=== PATIENT | female | born 1995 | race Caucasian/White ===

== ENCOUNTER 2016-10-03 20:07 | Emergency (ER) | payer OTHER ==
[~2016-10-03] VITALS: Ht 157.5 cm; Wt 64.7 kg
[2016-10-03 20:23] VITALS: TEMP 37.2; Ht 157.5 cm; Wt 64.7 kg
[2016-10-03] MEDS ORDERED: LORA-741 PO (20:46)
[2016-10-03] MEDS ORDERED: PARO10TA PO (20:46)
[2016-10-03] MEDS ORDERED: BCPILLS PO (20:46)
[2016-10-03] MEDS ORDERED: BUPR-79 PO (20:46)
[2016-10-03] MEDS ORDERED: TRAZ50TA35 PO (20:46)
[2016-10-03] MEDS ORDERED: ERYTHROMYCIN OP OINT 1 GM PKT OP STA (20:54)
--- NOTE | 2016-10-03 20:56 | EMERGENCY ROOM VISIT NOTE ---
History First contact with patient: 20:26 Chief Complaint: EYE ASSESSMENT Stated Complaint: SWOLLEN EYE WITH PUSS COMING OUT History of Present Illness The patient is a 20 year old female who presents to the Emergency Room via private vehicle with complaints of "swollen eye with pus coming out". The patient is accompanied by her boyfriend. The boyfriend notes that he had similar symptoms 1 week prior in bilateral eyes. The patient presents with redness of the right eye, and notes that she woke up and there was pus coming out of it. She denies any trauma to the eye, history of contacts or glasses. She notes that there has been associated intermittent blurriness in the right eye since she has woken up today. She denies any pain behind the eye with movement. She notes minimal pain on the upper eyelid when she moves her eye. She denies any fevers, chills, chest pain or shortness of breath. She denies any history of glaucoma. Review of Systems A complete 6-point Review of Systems was discussed with the patient, with pertinent positives and negatives listed in the History of Present Illness. All remaining Review of Systems questions can be considered negative unless otherwise specified. Past Medical/Surgical History Stomach problems Family History Heart disease, high blood pressure Social History Smoking Status: Never Smoker Social History: Patient lives at home with parents, denies alcohol and tobacco use. Current/Historical Medications Scheduled Control Pills ( Control Pills), 1 TAB PO NOON Bupropion (Wellbutrin Sr), 150 MG PO NOON Paroxetine Hcl (Paxil), 10 MG PO NOON Trazodone Hcl (Trazodone), 50 MG PO HS Scheduled PRN Lorazepam (Ativan), 0.5 MG PO BID PRN for Anxiety/Agitation Allergies Coded Allergies: No Known Allergies (Unverified , 10/03/16) Physical Exam Vital Signs Date Time Temp Pulse Resp B/P Pulse Ox O2 Delivery O2 Flow Rate FiO2 10/03/16 21:04 74 16 106/70 99 10/03/16 20:23 37.2 95 18 111/70 97 Room Air Right Eye Acuity: 20/25 Left Eye Acuity: 20/15 Physical Exam VITAL SIGNS - Vital signs and nursing notes were reviewed. GENERAL -20-year-old female appearing her stated age. Communicates well with provider and answers questions appropriately. HEAD - Normocephalic, Atraumatic. No Medina's Sign or Raccoon's Eyes. No depressed skull fractures palpable. EYES - PERRL with EOMI bilaterally. Sclera without noticeable foreign body or excoriations. Minimal conjunctival injection noted in the right eye. Without subconjunctival hemorrhage. Palpebral conjunctiva pink and moist with no injection or discharge noted. There is yellow drainage at the medial canthus. Slit lamp examination performed as further described. Superior right eyelid was inverted and revealed no stye or hordeolum. EARS - No deformities of external structures noted on gross examination bilaterally. Handle of malleus, umbo, cone of light, pars tensa/flaccid all easily visualized. NOSE - Midline and without cyanosis. Without discharge. MOUTH/OROPHARYNX - Without perioral cyanosis. Tongue midline with equal elevation of palate bilaterally. No tonsillar hypertrophy, erythema, or exudates noted. [] dentition noted. NECK - FROM assessed. No cervical lymphadenopathy noted. Slit Lamp Examination was performed of the right eye(s). The affected eye(s) were stained with Fluorescein stain to precipitate adequate visualization of any conjunctival/scleral excoriations or ulcers. The patient's face was comfortably rested on the chin guard of the slit lamp apparatus. The lights were dimmed and the affected eye(s) were thoroughly examined under microscopy using the blue light. No uptake was present within the eye. Additionally, the eye(s) were examined under microscopy using the regular light. Close examination revealed minimal superficial drainage. Negative Ramya sign. Eye was rinsed with normal saline. Patient tolerated the procedure well and no complications were met. Medical Decision & Procedures Medications Administered Medications (Trade) Dose Ordered Sig/Jerman Route Start Time Stop Time Status Last Admin Dose Admin Erythromycin (Erythromycin Oph Oint) 1 appln QID STAT OP 10/03/16 20:54 10/03/16 20:55 DC 10/03/16 21:04 1 APPLN Medical Decision Patient was seen and evaluated as above. After obtaining a thorough history and physical examination, patient presents with history and physical examination consistent with that of bacterial conjunctivitis of the right. This is particularly suspect given that the patient's boyfriend had the same symptoms 1 week prior. This is a highly contagious illness. The eyelid was inverted at the superior right because of tenderness to palpation. No stye or abscess noted. There was clear/yellow drainage in the eye. Slit-lamp exam was unremarkable. There is no evidence of glaucoma, abrasion, chamber rupture or any trauma. I do not suspect any emergent or surgical nature to the patient's condition at this time. She was given erythromycin ointment to be used 4 times daily for the next 5-7 days. She is to follow-up with [facility], and given the number for an [employer] specialist to follow up with if no improvement in the next 1-2 days and is to return here with any worsening of her symptoms. She was educated upon management today's findings, had questions answered prior to discharge, was educated upon worrisome symptoms in which to return, and was discharged home in good condition. In the evaluation and treatment of this patient, the following differential diagnoses were considered: Corneal Abrasion, Conjunctivitis, Eye Contusion, Globe Injury, Orbital Floor Injury (Blowout Fracture), Corneal Ulcer, Keratitis , Herpes Zoster Opthalmic, Blepharitis, Orbital Cellulitis, Iritis, Scleritis/ Episcleritis, Uveitis, Temporal Arteritis, Subconjunctival Hemorrhage. Impression Primary Impression: Conjunctivitis Departure Information Dispostion Home / Self-Care Condition GOOD Referrals No Doctor, Assigned (PCP) Bill Chisholm M.D. Patient Instructions [facility] Additional Instructions You have been treated in the Emergency Department today for conjunctivitis. You have been prescribed Erythromycin Opthalmic ointment. This is an antibiotic ointment which will help prevent an infection from developing in your affected eye. You should apply a 1 cm ribbon of the ointment to the lower part of the affected eye 4 times per day for the next 5-7 days. For pain control, you can use the following [id number] medicines (if >12 yo): - Regular strength (325mg/tab) Tylenol (acetaminophen) 2 tabs every 4-6 hours as needed. Do not exceed 12 tablets in a 24 hour period. Avoid taking more than 4 grams (4000 mg) of Tylenol per day. This includes any other sources of acetaminophen you may take on a regular basis. - Regular strength (200 mg/tab) Advil (ibuprofen) 1-2 tabs every 4-6 hours as needed. Do not exceed a dose of 3200 mg per day. You should relax in a quiet, dark place for the rest of the day. You should wear sunglasses while outside for the next few days until your eyes are not as sensitive to the light. You should schedule a follow-up appointment in 2-3 days with your Primary Care Provider or established Eye Doctor ([employer]) for further evaluation and treatment of your Corneal Abrasion. Please follow-up with [facility] and the eye doctor listed if no resolution, or return to the emergency department.. Return to the Emergency Department if your current symptoms worsen despite treatment course outlined above, or if you develop any of the following symptoms : intractable pain, visual disturbances, loss of vision, increased redness, swelling, drainage, or if you develop a fever. Please return to the emergency department for new/concerning symptoms. Problem Qualifiers Primary Impression: Conjunctivitis Conjunctivitis type: acute Acute conjunctivitis type: bacterial Laterality : right Qualified Codes: H10.31 - Unspecified acute conjunctivitis, right eye
[2016-10-03 21:04] VITALS: BP 106/70; PULSE 74; O2SAT 99
== END 2016-10-03 21:06 | disposition home or self-care (01) ==
LOC: C.EDB 20:09 → C.EDD 21:06
DX: H10.31 Unspecified acute conjunctivitis, right eye (principal); Z80.49 Family history of malignant neoplasm of other genital organs; Z79.3 Long term (current) use of hormonal contraceptives